=== PATIENT | female | born 1970 | race Caucasian/White ===

== ENCOUNTER 2022-06-02 23:46 | Emergency (ER) | payer SELFPAY ==
[~2022-06-02] VITALS: Ht 175.3 cm; Wt 97.5 kg
--- NOTE | 2022-06-03 00:06 | NUR ---
KALEYSNEREIDA FROM HOME C/O CP, EPIGASTRIC PAIN RADIATING TO BACK AND SHOULDER SINCE 1999 WITH 2 EPISODES OF VOMITING. PT AWAKE AND ALERT X4 RR EVEN AND UNLABORED. CHANGED INTO GOWN AND PLACED ON CARDUAC MONITOR AND PULSE AND V/S WNL
[2022-06-03] MEDS ORDERED: LIDOCAINE VISCOUS 2% UD 15 ML UDC ONE (00:08)
[2022-06-03] MEDS ORDERED: MAG HYDROX/AL HYDROX/SIMETH 30 ML UDC ONE (00:08)
--- NOTE | 2022-06-03 00:10 | NUR ---
20G RAC ESTABLISHED BLOOD SENT TO LAB
[2022-06-03] MEDS ORDERED: ONDANSETRON HCL/PF 4 MG/2 ML VIAL ONE (00:11)
[2022-06-03] MEDS: LIDOCAINE VISCOUS 2% UD 15 ML UDC MM ONE (00:11)
[2022-06-03] MEDS: MAG HYDROX/AL HYDROX/SIMETH 30 ML UDC PO ONE (00:11)
[2022-06-03] MEDS: IV NS 0.9% 500 ML BAG IV ONE (00:12)
--- NOTE | 2022-06-03 00:14 | NUR ---
EMT AT BEDSIDE FOR ECG
[2022-06-03] MEDS: ONDANSETRON HCL/PF 4 MG/2 ML VIAL IV ONE (00:16)
[2022-06-03 00:29] LABS: BASOPHILS # (AUTO) 0.1 K/uL (0.0-0.2); BASOPHILS % (AUTO) 0.8 % (0.0-2.0); EOSINOPHILS % (AUTO) 1.5 % (0.0-6.0); HEMATOCRIT 38 % (33-45); HEMOGLOBIN 12.7 g/dL (11.5-14.8); LYMPHOCYTES # (AUTO) 4.1 K/uL (0.8-4.8); LYMPHOCYTES % (AUTO) 38.9 % (20.0-44.0); MEAN CORPUSCULAR HGB CONC 33 g/dl (31.0-36.0); MEAN CORPUSCULAR VOLUME 87 fL (82-100); MONOCYTES # (AUTO) 0.9 K/uL (0.1-1.30); MONOCYTES % (AUTO) 8.6 % (2.0-12.0); NEUTROPHILS # (AUTO) 5.3 K/uL (1.8-8.9); NEUTROPHILS % (AUTO) 50.2 % (43.0-81.0); PLATELET COUNT (AUTO) 396 K/uL (150-450); RED BLOOD CELL COUNT(AUTO) 4.42 MIL/uL (4.0-5.2); WHITE BLOOD COUNT (AUTO) 10.5 K/uL (4.3-11.0)
[2022-06-03 00:50] LABS: CALCIUM, SERUM 9.2 mg/dL (8.5-10.1); CARBON DIOXIDE 26 mmol/L (21-32); CHLORIDE 104 mmol/L (98-107); GLUCOSE 112 mg/dL (74-106); POTASSIUM 3.5 mmol/L (3.5-5.1); SODIUM SERUM 140 mmol/L (136-145); UREA NITROGEN, BLOOD 25 mg/dL (7-18)
[2022-06-03] MEDS ORDERED: MORPHINE SULFATE INJ 4 MG/ML DISP.SYRIN ONE (00:52)
[2022-06-03 00:55] LABS: ALANINE AMINOTRANSFERASE 51 U/L (12-78); ALBUMIN 3.6 g/dL (3.4-5.0); ALKALINE PHOSPHATASE 88 U/L (46-116); ASPARTATE AMINOTRANSFERASE 55 U/L (15-37); BILIRUBIN,DIRECT 0.1 mg/dL (0.0-0.2); BILIRUBIN,TOTAL 0.2 mg/dL (0.2-1.0); TOTAL PROTEIN, SERUM 7.3 g/dL (6.4-8.2)
[2022-06-03] MEDS: MORPHINE SULFATE INJ 2 MG/ML DISP.SYRIN IV ONE (01:01)
[2022-06-03] MEDS ORDERED: CT SWABBABLE VALVE TRANS SET 1 EA INFUS.SET MC ONE (01:30)
[2022-06-03] MEDS ORDERED: IOHEXOL-350 100 ML VIAL IV ONE (01:30)
[2022-06-03] MEDS ORDERED: IV NS 0.9% 250 ML IV ONE (01:30)
--- NOTE | 2022-06-03 03:15 | NUR ---
Patient discharged to home in stable condition. Written and verbal after care instructions given. Patient verbalizes understanding of instruction. IV removed. Catheter intact and site benign. Pressure and 4x4 applied to site. No bleeding noted.
--- NOTE | 2022-06-03 03:16 | NUR ---
Patient discharged to home in stable condition. Written and verbal after care instructions given. Patient verbalizes understanding of instruction.IV removed. Catheter intact and site benign. Pressure and 4x4 applied to site. No bleeding noted.
[2022-06-03 03:25] VITALS: BP 116/58
== END 2022-06-03 03:26 | disposition home or self-care (01) ==
LOC: ER 23:48
DX: R07.89 Other chest pain (principal); R10.13 Epigastric pain; R11.2 Nausea with vomiting, unspecified
CPT/HCPCS: 99285; 96374; 71275; 71045; 96361; 96375; 93005; 85025; 80048; 80076; 85378; 36415; 84484; 85730; J2270; J2405; J7050; J7040; Q9967